=== PATIENT | male | born 1965 | race Caucasian/White ===

== ENCOUNTER 2018-07-06 12:25 | Day surgery (SDC) | payer MEDICARE, OTHER ==
[~2018-07-06] VITALS: Ht 175.3 cm; Wt 146.2 kg
[~2018-07-06 12:25] MED LIST: AMLO5 PO; Aspir 8181 MG PO; CYCL10 PO; DULO30 PO; DULO60; ERYT250 PO; GABA300 PO; LISI20 PO; METF500C PO; METH10 PO; NAPR500 PO; OXYC15ER PO; SITA100T2 PO; TESTOSTERONE; TRAM50 PO; ZESTORETIC 20-121 EA
[2018-07-06] MEDS ORDERED: Pacerone100 MG PO (13:00)
[2018-07-06] MEDS ORDERED: Vitamin C100 M1 PO (13:00)
[2018-07-06] MEDS ORDERED: THERA1 EACH PO (13:01)
== END 2018-07-06 13:50 | disposition home or self-care (01) ==
LOC: ORSCSDS 12:25
PROVIDERS: Anesthesiology
PROC: 3E0R33Z Introduction of Anti-inflammatory into Spinal Canal, Percutaneous Approach (ICD-10-PCS; principal; 2018-07-06 16:00)
DX: M96.1 Postlaminectomy syndrome, not elsewhere classified (principal); M54.16 Radiculopathy, lumbar region; E11.9 Type 2 diabetes mellitus without complications; Z79.899 Other long term (current) drug therapy
CPT/HCPCS: 82947; J1040

== ENCOUNTER 2020-04-05 07:12 | Day surgery (SDC) | payer MEDICARE, OTHER ==
[~2020-04-05] VITALS: Ht 175.3 cm; Wt 139.9 kg
[~2020-04-05 07:12] MED LIST changes: +Pacerone100 MG PO; +THERA1 EACH PO; +Vitamin C100 M1 PO
[2020-04-05] MEDS ORDERED: FLUOXETINE HCL20 MG PO (07:53)
[2020-04-05] MEDS ORDERED: TRULICITY1.5 MG/0.1 SQ (08:04)
[2020-04-05] MEDS ORDERED: GLUCHON PO (08:05)
== END 2020-04-05 11:10 | disposition home or self-care (01) ==
LOC: ORSCSDS 07:12
PROVIDERS: Orthopaedic Surgery
PROC: 0RQT0ZZ Repair Left Carpometacarpal Joint, Open Approach (ICD-10-PCS; principal; 2020-04-05 08:30)
PROC: 0LX80ZZ Transfer Left Hand Tendon, Open Approach (ICD-10-PCS; principal; 2020-04-05 08:30)
DX: M18.12 Unilateral primary osteoarthritis of first carpometacarpal joint, left hand (principal); I10 Essential (primary) hypertension; G47.33 Obstructive sleep apnea (adult) (pediatric); E66.01 Morbid (severe) obesity due to excess calories; Z68.41 Body mass index [BMI] 40.0-44.9, adult; Z87.891 Personal history of nicotine dependence; E11.40 Type 2 diabetes mellitus with diabetic neuropathy, unspecified; Z79.84 Long term (current) use of oral hypoglycemic drugs; Z79.899 Other long term (current) drug therapy
CPT/HCPCS: 82947; A9270; C1713; J1100; J2250; J2405; J2704; J2795; J3010; J7120

== ENCOUNTER 2022-12-17 08:56 | Day surgery (SDC) | payer MEDICARE, OTHER ==
[~2022-12-17] VITALS: Ht 175.3 cm; Wt 131.8 kg
[~2022-12-17 08:56] MED LIST changes: +FLUOXETINE HCL20 MG PO; +GLUCHON PO; +TRULICITY1.5 MG/0.1 SQ
[2022-12-17] MEDS ORDERED: ATOR20 (09:18)
--- NOTE | 2022-12-17 11:55 | NUR ---
12/17/22 1159 Beth Mancera PT HAD A HARD TIME WAKING FROM ANESTHESIA DUE TO HX PTSD; RN SHERWIN COMFORTED HIM UNTIL HE WAS ABLE TO BE COHERENT. [id number]
[2022-12-17 11:57] VITALS: BP 107/71
== END 2022-12-17 12:07 | disposition home or self-care (01) ==
LOC: ORSCSDS 08:56
PROVIDERS: Internal Medicine Gastroenterology
PROC: 0DBH8ZX Excision of Cecum, Via Natural or Artificial Opening Endoscopic, Diagnostic (ICD-10-PCS; principal; 2022-12-17 10:15)
DX: Z12.11 Encounter for screening for malignant neoplasm of colon (principal); Z86.010 Personal history of colon polyps; D12.0 Benign neoplasm of cecum; K57.30 Diverticulosis of large intestine without perforation or abscess without bleeding; K64.4 Residual hemorrhoidal skin tags; I10 Essential (primary) hypertension; E78.5 Hyperlipidemia, unspecified; G47.33 Obstructive sleep apnea (adult) (pediatric); E11.9 Type 2 diabetes mellitus without complications; Z79.899 Other long term (current) drug therapy; Z79.84 Long term (current) use of oral hypoglycemic drugs; Z79.82 Long term (current) use of aspirin; E66.01 Morbid (severe) obesity due to excess calories; Z68.41 Body mass index [BMI] 40.0-44.9, adult
CPT/HCPCS: 82947; 88305; J2704; J7120

== ENCOUNTER 2024-12-24 18:57 | Emergency (ER) | payer BC, MEDICARE ==
[~2024-12-24] VITALS: Ht 175.3 cm; Wt 135.6 kg
[~2024-12-24 18:57] MED LIST changes: +ATOR20
[2024-12-24 19:47] LABS: BASOPHILS ABSOLUTE AUTO 0.10 K/mm3 (0.00-0.23); BASOPHILS PERCENT AUTO 1 % (0-2); EOSINOPHILS ABSOLUTE AUTO 0.31 K/mm3 (0.00-0.68); EOSINOPHILS PERCENT AUTO 2 % (0-6); Hematocrit 49.6 % (37.0-53.0); Hemoglobin 17.4 g/dL (13.5-17.5); IMMATURE GRAN ABSOLUTE AUTO 0.04 K/mm3 (0.00-0.10); IMMATURE GRAN PERCENT AUTO 0 % (0-1); LYMPHOCYTES ABSOLUTE AUTO 2.68 K/mm3 (0.84-5.20); LYMPHOCYTES PERCENT AUTO 21 % (21-46); MONOCYTES ABSOLUTE AUTO 0.92 K/mm3 (0.16-1.47); MONOCYTES PERCENT AUTO 7 % (4-13); Mean Corpuscular HGB Conc 35.1 g/dL (31.5-36.5); Mean Corpuscular Volume 88 fL (80-100); NEUTROPHILS ABSOLUTE AUTO 8.91 K/mm3 (1.96-9.15); NEUTROPHILS PERCENT AUTO 69 % (41-73); NRBC ABSOLUTE 0.00 K/mm3 (0.00-0.02); NRBC Auto 0.0 /100 WBC (0.0-0.2); Platelet Count 292 K/mm3 (150-400); RDW Coefficient Variation 13.6 % (11.7-14.2); RDW Standard Deviation 43.8 fL (35.1-46.3)
[2024-12-24] MEDS ORDERED: ATOR40TA PO (19:51)
[2024-12-24] MEDS ORDERED: CYCL10 PO (19:52)
[2024-12-24] MEDS ORDERED: FLUOXETINE HCL60 MG PO (19:53)
[2024-12-24] MEDS ORDERED: GABA300 PO ×2 (19:53→19:54)
[2024-12-24] MEDS ORDERED: METFORMIN HCL500 M2 PO (19:54)
[2024-12-24] MEDS ORDERED: LISINOPRIL-HCT1 EACH PO (19:54)
[2024-12-24] MEDS ORDERED: DEPO-TESTO200 MG/18 IM (19:55)
[2024-12-24] MEDS ORDERED: OXYC15ER PO (19:55)
[2024-12-24] MEDS ORDERED: JARDIANCE25 MG PO (19:56)
[2024-12-24] MEDS ORDERED: MOUNJARO7.5 MG/0.5 SC (19:56)
[2024-12-24 20:13] LABS: Alanine Aminotransfer (ALT/SGP 30.0 U/L (12-78); Albumin, Blood 4.0 g/dL (3.4-5.0); Albumin/Globulin Ratio 1.1 (0.8-1.8); Anion Gap 1.0 mmol/L (3-11); Aspartate Aminotrans (AST/SGOT 12.0 U/L (12-37); Bilirubin, Total 0.5 mg/dL (0.1-1.0); Blood Urea Nitrogen 10.0 mg/dL (8-24); CO2, Blood 36.0 mmol/L (21-32); Calcium, Blood 7.4 mg/dL (8.5-10.1); Chloride, Blood 101.0 mmol/L (98-108); Creatinine, Blood 0.97 mg/dL (0.60-1.20); Globulin, Blood 3.5 g/dL (2.2-4.0); Glucose, Blood 140.0 mg/dL (70-99); Potassium, Blood 3.9 mmol/L (3.5-5.5); Sodium, Blood 134.0 mmol/L (136-145); Total Protein, Blood 7.5 g/dL (6.4-8.2)
[2024-12-24] MEDS ORDERED: FentaNYL Citrate 50 MCG/ML 2 ML Injection ONE (21:48)
[2024-12-24] MEDS ORDERED: EpiNEPhrine 1 MG/1 ML 1ML Vial ONE (21:58)
[2024-12-24] MEDS ORDERED: Ethanolamine Oleate 50MG/ML 2ML Amp ONE (21:58)
[2024-12-24 22:00] VITALS: BP 129/90
[2024-12-24] MEDS ORDERED: Dexmedetomidine HCL 200 MCG / 2 ML ONE (22:05)
--- NOTE | 2024-12-24 22:18 | NUR ---
History, Chart, Medications and Allergies reviewed before start of procedure. Patient up to Ambulate independently. Gait steady. Pre-Op teaching done. Pt verbalizes understanding. Patient States Post-Procedure ride home has been arranged.
--- NOTE | 2024-12-24 22:26 | NUR ---
12/24/[address] IN OR 4; SEE ANESTHESIA RECORDS.
[2024-12-24] MEDS ORDERED: Dexamethasone Sod Phos 10 MG/ML 1ML VIAL ONE (22:48)
[2024-12-24] MEDS ORDERED: Phenylephrine HCl 100 MCG/ML-NS 10MLSYR (1MG/10ML) ONE (23:21)
[2024-12-25] VITALS (8 sets, daily range): BP systolic 129–147; BP diastolic 82–93
[2024-12-25] MEDS ORDERED: ePHEDrine Sulfate 50 MG/ML 1ML Injection ONE (00:47)
[2024-12-25] MEDS ORDERED: Phenylephrine HCl 100 MCG/ML-NS 10MLSYR (1MG/10ML) ONE (01:27)
[2024-12-25] MEDS ORDERED: Ondansetron HCl 2 MG / ML 2ML Vial ONE ×2 (01:57→02:42)
--- NOTE | 2024-12-25 03:19 | NUR ---
HOME VIA WC TO CARE OF SPOUSE, V/U OF DC INSTRUCTIONS, VSS, ORIENTED, NO DIFF SWALLOWING OR BREATHING, NO SCRIPTS
== END 2024-12-25 21:45 | disposition other institution (70) ==
LOC: ER 18:57
PROVIDERS: Student in an Organized Health Care Education/Training Program
DX: Z01.89 Encounter for other specified special examinations (principal); T18.128A Food in esophagus causing other injury, initial encounter; W44.F3XA Food entering into or through a natural orifice, initial encounter; Z79.84 Long term (current) use of oral hypoglycemic drugs; Z79.82 Long term (current) use of aspirin; Z79.899 Other long term (current) drug therapy; Z88.0 Allergy status to penicillin; Z88.5 Allergy status to narcotic agent
CPT/HCPCS: 80053; 85025; 99284; J0169; J1100; J1430; J2371; J2405; J2704; J3010; J7120